=== PATIENT | male | born 1935 | race Hispanic/Latino ===

== ENCOUNTER 2018-08-17 14:16 | Observation (INO) | payer OTHER ==
[~2018-08-17] VITALS: Ht 160 cm; Wt 61.7 kg
[~2018-08-17 14:16] MED LIST: AEC81 PO; ATOR10TA69 PO; DONE10TA36 PO; FURO20TA6 PO; Isosorbide Mono 30MG Tab Sr PO; LISI-617 PO
[2018-08-17 14:52] LABS: BASOPHILS % (AUTO) 0.5 % (0.0-5.0); EOSINOPHILS % (AUTO) 1.4 % (0.0-8.0); LYMPHOCYTES % (AUTO) 14.9 % (21.0-51.0); MEAN CORPUSCULAR HEMOGLOBIN 32.8 pg (27.0-33.0); MEAN CORPUSCULAR HGB CONC 33.8 g/dL (32.0-36.0); MEAN CORPUSCULAR VOLUME 97.2 fL (79-99); MONOCYTES % (AUTO) 5.8 % (3.0-13.0); NEUTROPHILS % (AUTO) 77.4 % (40.0-77.0); PLATELET COUNT (AUTO) 224 K/uL (130-400); RED BLOOD CELL COUNT(AUTO) 4.12 MIL/uL (4.50-6.20); RED CELL DISTRIBUTION WIDTH 13.1 % (11.0-15.5); WHITE BLOOD COUNT (AUTO) 9.1 K/uL (4.8-10.8)
[2018-08-17] MEDS ORDERED: TETANUS/DIPHTHERIA TOXOID [ADULT] 0.5 ML VIAL IM ONE (14:53)
[2018-08-17] MEDS ORDERED: SODIUM CHLORIDE 0.9% 250 ML IV ONE (14:57)
[2018-08-17 15:13] LABS: CREATININE 1.3 mg/dL (0.5-1.5)
[2018-08-17 15:18] LABS: ALBUMIN 3.5 g/dL (3.5-5.0); BILIRUBIN,TOTAL 0.8 mg/dL (0.2-1.0); TOTAL PROTEIN, SERUM 7.3 g/dL (6.0-8.3)
[2018-08-17 16:26] LABS: APPEARANCE,URINE Clear (CLEAR); BILIRUBIN,URINE Negative (NEGATIVE); COLOR,URINE Yellow (YELLOW); GLUCOSE, URINE (UA) Negative (NEGATIVE); KETONES,URINE Trace mg/dL (NEGATIVE); LEUKOCYTE ESTERASE ,URINE Small (NEGATIVE); NITRATE,URINE Negative (NEGATIVE); OCCULT BLOOD,URINE Negative (NEGATIVE); PROTEIN,URINE Negative (NEGATIVE)
[2018-08-17 16:59] LABS: BACTERIA,URINE Few /HPF (None Seen); RBC,URINE 0-1 /HPF (0-1); SQUAMOUS EPITHELIAL CELL,UR 0-2 /HPF (0-2)
[2018-08-17] MEDS ORDERED: HYDROCODONE/ACETAMINOPHEN 5/325 MG TAB PO PRN (17:00)
[2018-08-17] MEDS ORDERED: ONDANSETRON HCL 4 MG/2 ML VIAL IVP PRN (17:00)
[2018-08-17] MEDS ORDERED: ACETAMINOPHEN 325 MG TAB PO PRN (17:00)
[2018-08-17] MEDS ORDERED: DEXTROSE 50%-WATER 50 ML DISP.SYRIN IV PRN (17:00)
[2018-08-17] MEDS ORDERED: MORPHINE SULFATE 2 MG/ML 1ML SYG IVP PRN (17:00)
[2018-08-17] MEDS ORDERED: GLUCAGON 1MG KIT 1 MG ML IM PRN (17:00)
[2018-08-17 19:00] VITALS: BP_SYST 108; BP_SYST 121; BP_DIAS 55; BP_DIAS 70
[2018-08-17] MEDS: INSULIN R PO SS1 SQ SCH (21:00)
[2018-08-17] MEDS: LACTATED RINGERS 1000ML 1,000 ML IV SCH (21:35)
[2018-08-17] MEDS: ATORVASTATIN CALCIUM 10 MG TABLET PO SCH (21:35)
[2018-08-17] MEDS: DONEPEZIL HCL 5 MG TAB PO SCH (21:35)
[2018-08-17 21:59] LABS: TROPONIN I 0.08 ng/mL (0.00-0.06)
[2018-08-18] VITALS: BP 120/68
[2018-08-18] MEDS ORDERED: ISOS30TA6 PO (01:57)
[2018-08-18 04:00] VITALS: BP 160/85
[2018-08-18 05:25] LABS: BASOPHILS % (AUTO) 0.3 % (0.0-5.0); EOSINOPHILS % (AUTO) 2.2 % (0.0-8.0); HEMATOCRIT 35.8 % (42-54); LYMPHOCYTES % (AUTO) 17.4 % (21.0-51.0); MEAN CORPUSCULAR HEMOGLOBIN 31.9 pg (27.0-33.0); MEAN CORPUSCULAR HGB CONC 33.2 g/dL (32.0-36.0); MEAN CORPUSCULAR VOLUME 96.1 fL (79-99); MONOCYTES % (AUTO) 8.3 % (3.0-13.0); NEUTROPHILS % (AUTO) 71.8 % (40.0-77.0); NUCLEATED RED BLOOD CELLS 0.1 % (0.0-0.19); PLATELET COUNT (AUTO) 187 K/uL (130-400); RED BLOOD CELL COUNT(AUTO) 3.73 MIL/uL (4.50-6.20); RED CELL DISTRIBUTION WIDTH 12.6 % (11.0-15.5); WHITE BLOOD COUNT (AUTO) 8.8 K/uL (4.8-10.8)
[2018-08-18 05:51] LABS: CREATININE 1.4 mg/dL (0.5-1.5); POTASSIUM 3.8 mmol/L (3.5-5.1); TROPONIN I 0.07 ng/mL (0.00-0.06)
[2018-08-18] MEDS: LACTATED RINGERS 1000ML 1,000 ML IV SCH ×2 (06:20→19:40)
[2018-08-18] MEDS: INSULIN R PO SS1 SQ SCH ×4 (06:43→21:00)
[2018-08-18 08:00] VITALS: BP 151/92
[2018-08-18] MEDS ORDERED: PNEUMOCOCCAL VACCINE POLYVALENT 0.5 ML/VIAL [PPV] IM ONE (09:00)
[2018-08-18 11:00] VITALS: BP 155/79
[2018-08-18] MEDS: ASPIRIN 81MG TAB.CHEW PO SCH (11:55)
[2018-08-18] MEDS: LISINOPRIL 5 MG TABLET PO SCH (11:56)
[2018-08-18] MEDS: FUROSEMIDE 20 MG TABLET PO SCH (11:57)
[2018-08-18] MEDS: ENOXAPARIN SODIUM 40 MG/0.4 ML SYRINGE SQ SCH (11:57)
[2018-08-18 17:31] VITALS: BP 156/93
[2018-08-18] MEDS: ATORVASTATIN CALCIUM 10 MG TABLET PO SCH (21:25)
[2018-08-18] MEDS: DONEPEZIL HCL 5 MG TAB PO SCH (21:25)
[2018-08-19] VITALS: BP 140/85
[2018-08-19 04:00] VITALS: BP 133/82
[2018-08-19] MEDS: INSULIN R PO SS1 SQ SCH ×3 (05:44→16:30)
[2018-08-19 07:25] VITALS: BP 133/81
[2018-08-19] MEDS: LISINOPRIL 5 MG TABLET PO SCH (08:54)
[2018-08-19] MEDS: ASPIRIN 81MG TAB.CHEW PO SCH (08:54)
[2018-08-19] MEDS: FUROSEMIDE 20 MG TABLET PO SCH (08:54)
[2018-08-19] MEDS: LACTATED RINGERS 1000ML 1,000 ML IV SCH (09:00)
[2018-08-19] MEDS: ENOXAPARIN SODIUM 40 MG/0.4 ML SYRINGE SQ SCH (09:07)
[2018-08-19 11:44] VITALS: BP 148/84
[2018-08-19 16:00] VITALS: BP 118/70
== END 2018-08-19 20:41 | disposition home or self-care (01) ==
LOC: EDH 14:16 → EDHIP 16:27 → 3DH 18:10
PROVIDERS: ADMIT Internal Medicine Critical Care Medicine; ATTEND Internal Medicine Critical Care Medicine
DX: R55 Syncope and collapse (principal); I35.0 Nonrheumatic aortic (valve) stenosis; I10 Essential (primary) hypertension; E78.5 Hyperlipidemia, unspecified; S01.01XA Laceration without foreign body of scalp, initial encounter; I25.10 Atherosclerotic heart disease of native coronary artery without angina pectoris; I45.2 Bifascicular block; J44.9 Chronic obstructive pulmonary disease, unspecified; J84.10 Pulmonary fibrosis, unspecified; G30.9 Alzheimer's disease, unspecified; F02.80 Dementia in other diseases classified elsewhere, unspecified severity, without behavioral disturbance, psychotic disturbance, mood disturbance, and anxiety; Z95.1 Presence of aortocoronary bypass graft; Z95.5 Presence of coronary angioplasty implant and graft; Z99.81 Dependence on supplemental oxygen; W17.89XA Other fall from one level to another, initial encounter; Y93.89 Activity, other specified; Y92.009 Unspecified place in unspecified non-institutional (private) residence as the place of occurrence of the external cause; Y99.8 Other external cause status; Z23 Encounter for immunization
CPT/HCPCS: 36415 ×2; 70450; 71045; 72125; 80048; 80053; 81001; 82550 ×3; 82948 ×8; 83874 ×2; 84484 ×3; 85025 ×2; 90471; 90714; 90732; 93005 ×2; 93306; 96360; 96361 ×2; 96372 ×2; 99284; A4510; G0009; G0378 ×52; J1650 ×2; J7030; J7120 ×2; Q2038

== ENCOUNTER 2018-09-09 17:11 | Observation (INO) | payer OTHER ==
[~2018-09-09] VITALS: Ht 165.1 cm; Wt 80.3 kg
[~2018-09-09 17:11] MED LIST changes: -FURO20TA6 PO; -Isosorbide Mono 30MG Tab Sr PO
[2018-09-09 17:51] LABS: BASOPHILS % (AUTO) 0.3 % (0.0-5.0); EOSINOPHILS % (AUTO) 0.2 % (0.0-8.0); HEMATOCRIT 43.1 % (42-54); MEAN CORPUSCULAR HEMOGLOBIN 31.3 pg (27.0-33.0); MEAN CORPUSCULAR HGB CONC 32.9 g/dL (32.0-36.0); MONOCYTES % (AUTO) 7.4 % (3.0-13.0); NEUTROPHILS % (AUTO) 83.1 % (40.0-77.0); PLATELET COUNT (AUTO) 221 K/uL (130-400); RED BLOOD CELL COUNT(AUTO) 4.53 MIL/uL (4.50-6.20); RED CELL DISTRIBUTION WIDTH 12.5 % (11.0-15.5)
[2018-09-09] MEDS ORDERED: SODIUM CHLORIDE 0.9% 1000ML 1,000 ML IV ONE ×2 (17:57→21:43)
[2018-09-09 17:59] LABS: INR 0.96 (0.85-1.15); PARTIAL THROMBOPLASTIN TIME 26.8 SEC (26.3-35.5); PROTHROMBIN TIME 10.1 SEC (9.6-11.6)
[2018-09-09] MEDS ORDERED: ACETAMINOPHEN 325 MG TAB ONE (18:05)
[2018-09-09] MEDS ORDERED: CEFTRIAXONE SODIUM 1 GM ONE (18:05)
[2018-09-09] MEDS ORDERED: METHYLPREDNISOLONE SOD SUCC 125MG/2ML VIAL ONE (18:11)
[2018-09-09] MEDS ORDERED: IPRATROPIUM/ALBUTEROL SULFATE 3 ML SOLUTION IH ONE (18:13)
[2018-09-09 18:15] LABS: CARBON DIOXIDE 31 mmol/L (21-32); CHLORIDE 103 mmol/L (101-111); CREATININE 1.3 mg/dL (0.5-1.5); GLOMERULAR FILTR. RATE CALC 56 mL/min (>60); GLUCOSE,RANDOM 138 mg/dL (70-105); POTASSIUM 3.9 mmol/L (3.5-5.1); SODIUM SERUM 142 mmol/L (136-145); UREA NITROGEN, BLOOD 22 mg/dL (7-18)
[2018-09-09] MEDS ORDERED: LEVOFLOXACIN 750 MG/D5W 150 ML 150 ML ONE (18:19)
[2018-09-09 18:26] LABS: ALANINE AMINOTRANSFERASE 23 U/L (12-78); ALBUMIN 3.6 g/dL (3.5-5.0); ASPARTATE AMINOTRANSFERASE 18 U/L (10-37); BILIRUBIN,TOTAL 0.8 mg/dL (0.2-1.0); CREATINE KINASE, TOTAL 59 U/L (21-232); MYOGLOBIN 46 ng/mL (10-92); TOTAL PROTEIN, SERUM 8.3 g/dL (6.0-8.3); TROPONIN I < 0.04 ng/mL (0.00-0.06)
[2018-09-09] MEDS: SODIUM CHLORIDE 0.9% 1000ML 1,000 ML IV SCH ×2 (19:15→20:15)
[2018-09-09] MEDS ORDERED: VANCOMYCIN 1GM+NS 250ML 250 ML IV SCH (20:15)
[2018-09-09] MEDS ORDERED: VANCOMYCIN PROTOCOL PER PHARMACY IV SCH (20:15)
[2018-09-09] MEDS ORDERED: DEXTROSE 50%-WATER 50 ML DISP.SYRIN IV PRN (20:30)
[2018-09-09] MEDS ORDERED: ACETAMINOPHEN 325 MG TAB PO PRN (20:30)
[2018-09-09] MEDS ORDERED: GLUCAGON 1MG KIT 1 MG ML IM PRN (20:30)
[2018-09-09] MEDS ORDERED: ONDANSETRON HCL 4 MG/2 ML VIAL IVP PRN (20:30)
[2018-09-09] MEDS: INSULIN R PO SS1 SQ SCH (21:00)
[2018-09-09] MEDS: ZOSYN 3.375GM+NS 50ML 50 ML IV SCH (21:00)
[2018-09-09] MEDS: METHYLPREDNISOLONE SOD SUCC 40MG/ML 1ML IVP SCH (21:00)
[2018-09-09] MEDS: BUDESONIDE 0.5 MG/2 ML INH IH SCH (21:19)
[2018-09-09] MEDS ORDERED: SODIUM CHLORIDE 0.9% 50 ML IV ONE (21:44)
[2018-09-09] MEDS ORDERED: ZOSYN 3.375GM+NS 50ML 50 ML IV ONE (21:44)
[2018-09-09] MEDS: IPRATROPIUM/ALBUTEROL SULFATE 3 ML SOLUTION IH SCH (23:24)
[2018-09-10 00:13] LABS: APPEARANCE,URINE Cloudy (CLEAR); BILIRUBIN,URINE Negative (NEGATIVE); COLOR,URINE Dark Yellow (YELLOW); GLUCOSE, URINE (UA) TRACE mg/dL (NEGATIVE); KETONES,URINE Trace mg/dL (NEGATIVE); LEUKOCYTE ESTERASE ,URINE Trace (NEGATIVE); NITRATE,URINE Negative (NEGATIVE); OCCULT BLOOD,URINE Negative (NEGATIVE); PH,URINE 5.5 (5.0-8.0); PROTEIN,URINE Trace (NEGATIVE)
[2018-09-10 00:20] LABS: BACTERIA,URINE Rare /HPF (None Seen); MUCUS,URINE Few LPF (None Seen); RBC,URINE 0-1 /HPF (0-1); SQUAMOUS EPITHELIAL CELL,UR Few /HPF (0-2)
[2018-09-10] MEDS ORDERED: VANCOMYCIN 1GM+NS 250ML 250 ML IV ONE (00:42)
[2018-09-10 01:00] VITALS: BP 134/76
[2018-09-10] MEDS ORDERED: FURO-152 PO (01:34)
[2018-09-10] MEDS ORDERED: VANCOMYCIN PROTOCOL PER PHARMACY IV SCH (02:15)
[2018-09-10] MEDS ORDERED: PHARMACY COMMUNICATION MISC SCH (02:15)
[2018-09-10 04:00] VITALS: BP 117/65
[2018-09-10] MEDS ORDERED: VANCOMYCIN 1.25 GM in SODIUM CHLORIDE 0.9% 250 ML IV SCH (04:00)
[2018-09-10] MEDS: ZOSYN 3.375GM+NS 50ML 50 ML IV SCH ×3 (05:25→20:17)
[2018-09-10] MEDS: INSULIN R PO SS1 SQ SCH ×4 (05:55→21:54)
[2018-09-10] MEDS: IPRATROPIUM/ALBUTEROL SULFATE 3 ML SOLUTION IH SCH ×4 (07:07→23:44)
[2018-09-10] MEDS: BUDESONIDE 0.5 MG/2 ML INH IH SCH ×2 (07:21→18:38)
[2018-09-10 08:00] VITALS: BP 128/62
[2018-09-10] MEDS: METHYLPREDNISOLONE SOD SUCC 40MG/ML 1ML IVP SCH ×2 (09:50→20:17)
[2018-09-10] MEDS: PANTOPRAZOLE SODIUM 40 MG TABLET.DR PO SCH (09:50)
[2018-09-10 12:00] VITALS: BP_SYST 126; BP_SYST 134; BP_DIAS 58; BP_DIAS 84
[2018-09-10] MEDS ORDERED: SODIUM CHLORIDE 3% FOR INHALATION 4 ML/AMP VIAL.NEB IH ONE (13:41)
[2018-09-10] MEDS: SODIUM CHLORIDE 0.9% 1000ML 1,000 ML IV SCH ×3 (15:15→20:17)
[2018-09-10 16:00] VITALS: BP 110/68
[2018-09-10 20:00] VITALS: BP 125/77
[2018-09-10] MEDS: VANCOMYCIN 1GM+NS 250ML 250 ML IV SCH (20:18)
[2018-09-11] VITALS: BP 125/77
[2018-09-11] MEDS ORDERED: SODIUM CHLORIDE 3% FOR INHALATION 4 ML/AMP VIAL.NEB IH ONE (00:20)
[2018-09-11 04:16] VITALS: BP 124/72
[2018-09-11] MEDS: INSULIN R PO SS1 SQ SCH ×4 (05:54→21:00)
[2018-09-11] MEDS: ZOSYN 3.375GM+NS 50ML 50 ML IV SCH ×3 (05:54→15:30)
[2018-09-11] MEDS: IPRATROPIUM/ALBUTEROL SULFATE 3 ML SOLUTION IH SCH ×4 (07:03→23:30)
[2018-09-11] MEDS: BUDESONIDE 0.5 MG/2 ML INH IH SCH ×2 (07:11→18:35)
[2018-09-11] MEDS: SODIUM CHLORIDE 3% FOR INHALATION 4 ML/AMP VIAL.NEB IH ONE ×2 (07:13→07:19)
[2018-09-11 08:16] VITALS: BP 127/77
[2018-09-11] MEDS: METHYLPREDNISOLONE SOD SUCC 40MG/ML 1ML IVP SCH ×2 (09:11→21:55)
[2018-09-11] MEDS: PANTOPRAZOLE SODIUM 40 MG TABLET.DR PO SCH (09:12)
[2018-09-11] MEDS: FAMOTIDINE 20MG TAB 20 MG TAB PO SCH (09:12)
[2018-09-11] MEDS: ENOXAPARIN SODIUM 40 MG/0.4 ML SYRINGE SQ SCH (09:13)
[2018-09-11 11:10] LABS: HEMATOCRIT 33.9 % (42-54); MEAN CORPUSCULAR HEMOGLOBIN 32.1 pg (27.0-33.0); MEAN CORPUSCULAR HGB CONC 33.2 g/dL (32.0-36.0); MEAN CORPUSCULAR VOLUME 96.6 fL (79-99); PLATELET COUNT (AUTO) 209 K/uL (130-400); RED BLOOD CELL COUNT(AUTO) 3.51 MIL/uL (4.50-6.20); RED CELL DISTRIBUTION WIDTH 12.7 % (11.0-15.5); WHITE BLOOD COUNT (AUTO) 19.8 K/uL (4.8-10.8)
[2018-09-11 11:16] LABS: CREATININE 1.3 mg/dL (0.5-1.5); POTASSIUM 3.9 mmol/L (3.5-5.1)
[2018-09-11] MEDS: SODIUM CHLORIDE 0.9% 1000ML 1,000 ML IV SCH (12:44)
[2018-09-11 13:48] VITALS: BP 127/70
[2018-09-11 16:47] VITALS: BP 130/70
[2018-09-11 21:36] VITALS: BP 122/60
[2018-09-11] MEDS: VANCOMYCIN 1GM+NS 250ML 250 ML IV SCH (21:54)
[2018-09-12] VITALS: BP 127/86
[2018-09-12 04:15] VITALS: BP 111/69
[2018-09-12] MEDS: ZOSYN 3.375GM+NS 50ML 50 ML IV SCH (05:29)
[2018-09-12] MEDS: IPRATROPIUM/ALBUTEROL SULFATE 3 ML SOLUTION IH SCH ×2 (06:43→11:21)
[2018-09-12] MEDS: INSULIN R PO SS1 SQ SCH (06:44)
[2018-09-12] MEDS: BUDESONIDE 0.5 MG/2 ML INH IH SCH (06:52)
[2018-09-12] MEDS: SODIUM CHLORIDE 0.9% 1000ML 1,000 ML IV SCH ×2 (07:15→08:15)
[2018-09-12 08:00] VITALS: BP 146/80
[2018-09-12] MEDS: ENOXAPARIN SODIUM 40 MG/0.4 ML SYRINGE SQ SCH (09:00)
[2018-09-12] MEDS: PANTOPRAZOLE SODIUM 40 MG TABLET.DR PO SCH (10:55)
[2018-09-12] MEDS: METHYLPREDNISOLONE SOD SUCC 40MG/ML 1ML IVP SCH (10:55)
[2018-09-12] MEDS: FAMOTIDINE 20MG TAB 20 MG TAB PO SCH (10:55)
[2018-09-12] MEDS ORDERED: FUROSEMIDE 10 MG/ML 2ML VIAL IV SCH (12:15)
[2018-09-12] MEDS ORDERED: BISACODYL 10 MG SUPP.RECT RC PRN (12:15)
[2018-09-12] MEDS ORDERED: ZOLPIDEM TARTRATE 5 MG TAB PO PRN (12:15)
[2018-09-12] MEDS ORDERED: LACTULOSE 20 GM/30 ML UDCUP PO PRN (12:15)
== END 2018-09-12 11:00 | disposition home or self-care (01) ==
LOC: EDH 17:11 → EDHIP 18:20 → 3BH 09-10 01:08
PROVIDERS: ADMIT Internal Medicine Critical Care Medicine; ATTEND Internal Medicine Critical Care Medicine
DX: J44.1 Chronic obstructive pulmonary disease with (acute) exacerbation (principal); J44.0 Chronic obstructive pulmonary disease with (acute) lower respiratory infection; R50.9 Fever, unspecified; I35.0 Nonrheumatic aortic (valve) stenosis; I10 Essential (primary) hypertension; I25.10 Atherosclerotic heart disease of native coronary artery without angina pectoris; J96.21 Acute and chronic respiratory failure with hypoxia; E78.5 Hyperlipidemia, unspecified; F02.80 Dementia in other diseases classified elsewhere, unspecified severity, without behavioral disturbance, psychotic disturbance, mood disturbance, and anxiety; G30.9 Alzheimer's disease, unspecified; Z23 Encounter for immunization; Z74.01 Bed confinement status; Z95.1 Presence of aortocoronary bypass graft; Z95.5 Presence of coronary angioplasty implant and graft; Z99.81 Dependence on supplemental oxygen; Z79.01 Long term (current) use of anticoagulants
CPT/HCPCS: 36415 ×2; 71045; 80048; 80053; 81001; 82550; 82948 ×10; 83605; 83874; 84484; 85025; 85027; 85610; 85730; 87040 ×2; 87071; 87088; 87205; 87804 ×2; 93005; 94640 ×20; 94664; 96365; 96366 ×3; 96368; 96372 ×2; 96375; 96376 ×3; 97116; 97161; 99284; G0378 ×65; G8978; G8979; G8980; G8981; G8982; G8983; J0696; J1650; J1815 ×2; J1956; J2543 ×8; J2920 ×5; J2930; J3370 ×3; J7030 ×3

== ENCOUNTER 2018-09-26 16:54 | Emergency (ER) | payer OTHER ==
[~2018-09-26 16:54] MED LIST changes: +FURO-152 PO
[2018-09-26 17:52] LABS: BASOPHILS % (AUTO) 0.7 % (0.0-5.0); EOSINOPHILS % (AUTO) 2.5 % (0.0-8.0); HEMATOCRIT 38.8 % (42-54); LYMPHOCYTES % (AUTO) 14.3 % (21.0-51.0); MEAN CORPUSCULAR HEMOGLOBIN 31.7 pg (27.0-33.0); MEAN CORPUSCULAR HGB CONC 32.3 g/dL (32.0-36.0); MEAN CORPUSCULAR VOLUME 98.2 fL (79-99); MONOCYTES % (AUTO) 6.5 % (3.0-13.0); PLATELET COUNT (AUTO) 315 K/uL (130-400); RED BLOOD CELL COUNT(AUTO) 3.95 MIL/uL (4.50-6.20); RED CELL DISTRIBUTION WIDTH 13.5 % (11.0-15.5); WHITE BLOOD COUNT (AUTO) 9.9 K/uL (4.8-10.8)
[2018-09-26 18:08] LABS: APPEARANCE,URINE Clear (CLEAR); BILIRUBIN,URINE Negative (NEGATIVE); COLOR,URINE Yellow (YELLOW); GLUCOSE, URINE (UA) Negative (NEGATIVE); KETONES,URINE Negative (NEGATIVE); LEUKOCYTE ESTERASE ,URINE Negative (NEGATIVE); NITRATE,URINE Negative (NEGATIVE); OCCULT BLOOD,URINE Negative (NEGATIVE); PROTEIN,URINE Negative (NEGATIVE)
[2018-09-26 18:15] LABS: AMPHET/METH SCREEN,URINE NEGATIVE (NEGATIVE); BARBITURATE SCREEN, URINE NEGATIVE (NEGATIVE); BENZODIAZEPINES SCREEN,URINE NEGATIVE (NEGATIVE); CANNABINOID SCREEN,URINE NEGATIVE (NEGATIVE); COCAINE SCREEN,URINE NEGATIVE (NEGATIVE); OPIATE SCREEN,URINE NEGATIVE (NEGATIVE); PHENCYCLIDINE SCREEN,URINE NEGATIVE (NEGATIVE)
[2018-09-26 18:15] LABS: CARBON DIOXIDE 31 mmol/L (21-32); CHLORIDE 106 mmol/L (101-111); CREATININE 1.3 mg/dL (0.5-1.5); GLOMERULAR FILTR. RATE CALC 56 mL/min (>60); GLUCOSE,RANDOM 153 mg/dL (70-105); POTASSIUM 3.8 mmol/L (3.5-5.1); SODIUM SERUM 144 mmol/L (136-145); UREA NITROGEN, BLOOD 24 mg/dL (7-18)
[2018-09-26 18:20] LABS: ALANINE AMINOTRANSFERASE 26 U/L (12-78); ALCOHOL, BLOOD < 3 mg/dL (0-10); ASPARTATE AMINOTRANSFERASE 24 U/L (10-37); BILIRUBIN,TOTAL 0.7 mg/dL (0.2-1.0); TOTAL PROTEIN, SERUM 6.7 g/dL (6.0-8.3)
== END 2018-09-26 19:08 | disposition home or self-care (01) ==
LOC: EDH 16:54
DX: R55 Syncope and collapse (principal); I11.0 Hypertensive heart disease with heart failure; I50.9 Heart failure, unspecified; J44.9 Chronic obstructive pulmonary disease, unspecified; Z98.890 Other specified postprocedural states
CPT/HCPCS: 36415; 70450; 80053; 80305; 81003; 84484; 85025; 93005; 99284; G0480

== ENCOUNTER 2019-05-29 13:15 | Emergency (ER) | payer OTHER ==
[2019-05-29 13:46] LABS: BASOPHILS % (AUTO) 0.7 % (0.0-5.0); EOSINOPHILS % (AUTO) 2.1 % (0.0-8.0); HEMATOCRIT 41.5 % (42-54); MEAN CORPUSCULAR HEMOGLOBIN 32.7 pg (27.0-33.0); MEAN CORPUSCULAR VOLUME 96.2 fL (79-99); MONOCYTES % (AUTO) 6.7 % (3.0-13.0); NEUTROPHILS % (AUTO) 63.5 % (40.0-77.0); NUCLEATED RED BLOOD CELLS 0.1 % (0.0-0.19); PLATELET COUNT (AUTO) 222 K/uL (130-400); RED BLOOD CELL COUNT(AUTO) 4.32 MIL/uL (4.50-6.20); WHITE BLOOD COUNT (AUTO) 7.3 K/uL (4.8-10.8)
[2019-05-29 13:57] LABS: CREATININE 1.6 mg/dL (0.5-1.5); POTASSIUM 3.3 mmol/L (3.5-5.1)
[2019-05-29 13:58] LABS: INR 1.02 (0.85-1.15); PARTIAL THROMBOPLASTIN TIME 24.7 SEC (26.3-35.5); PROTHROMBIN TIME 10.7 SEC (9.6-11.6)
[2019-05-29 14:02] LABS: ALBUMIN 3.4 g/dL (3.5-5.0); BILIRUBIN,TOTAL 0.6 mg/dL (0.2-1.0); TOTAL PROTEIN, SERUM 6.8 g/dL (6.0-8.3)
== END 2019-05-29 14:56 | disposition home or self-care (01) ==
LOC: EDH 13:15
DX: J69.0 Pneumonitis due to inhalation of food and vomit (principal); I11.0 Hypertensive heart disease with heart failure; I50.9 Heart failure, unspecified; J44.9 Chronic obstructive pulmonary disease, unspecified; G30.9 Alzheimer's disease, unspecified; F02.80 Dementia in other diseases classified elsewhere, unspecified severity, without behavioral disturbance, psychotic disturbance, mood disturbance, and anxiety
CPT/HCPCS: 36415; 71045; 80053; 82550; 83880; 84484; 85025; 85610; 85730; 93005

== ENCOUNTER → 2019-11-20 | Outpatient (CLI) | payer OTHER ==
[~2019-11-20] MED LIST changes: +IOHEXOL-350 50ML VIAL IV ONE
== END | disposition home or self-care (01) ==
LOC: RAH 10:09
PROVIDERS: ATTEND Internal Medicine
DX: I08.3 Combined rheumatic disorders of mitral, aortic and tricuspid valves (principal); J98.11 Atelectasis; I71.2 Thoracic aortic aneurysm, without rupture; I25.3 Aneurysm of heart; M47.814 Spondylosis without myelopathy or radiculopathy, thoracic region; R01.1 Cardiac murmur, unspecified; J96.11 Chronic respiratory failure with hypoxia
CPT/HCPCS: 71270; 93306; 93356; Q9967

== ENCOUNTER 2021-10-06 00:47 | Emergency (ER) | payer OTHER ==
[~2021-10-06] VITALS: Ht 162.6 cm; Wt 59.0 kg
[~2021-10-06 00:47] MED LIST changes: +DONE-53 PO; -DONE10TA36 PO; -IOHEXOL-350 50ML VIAL IV ONE; -LISI-617 PO; +LISI5TAB21 PO
[2021-10-06] MEDS ORDERED: 0.9%NACL 1000ML 1,000 ML IV ONE (01:34)
[2021-10-06 01:39] LABS: BASOPHILS % (AUTO) 0.1 % (0.0-5.0); EOSINOPHILS % (AUTO) 0.3 % (0.0-8.0); HEMATOCRIT 37.5 % (42-54); LYMPHOCYTES % (AUTO) 4.2 % (21.0-51.0); MEAN CORPUSCULAR HEMOGLOBIN 33.3 pg (27.0-33.0); MEAN CORPUSCULAR HGB CONC 32.5 g/dL (32.0-36.0); MEAN CORPUSCULAR VOLUME 102.5 fL (79-99); NEUTROPHILS % (AUTO) 88.9 % (40.0-77.0); PLATELET COUNT (AUTO) 209 K/uL (130-400); RED BLOOD CELL COUNT(AUTO) 3.66 MIL/uL (4.50-6.20); RED CELL DISTRIBUTION WIDTH 12.3 % (11.0-15.5); WHITE BLOOD COUNT (AUTO) 13.5 K/uL (4.8-10.8)
[2021-10-06 01:53] LABS: CREATININE 1.7 mg/dL (0.5-1.5); POTASSIUM 3.6 mmol/L (3.5-5.1)
[2021-10-06 01:58] LABS: ALBUMIN 4.2 g/dL (3.5-5.0); BILIRUBIN,TOTAL 0.4 mg/dL (0.2-1.0)
[2021-10-06 03:11] VITALS: BP 134/78
== END 2021-10-06 03:26 | disposition home or self-care (01) ==
LOC: EDH 00:47
DX: E86.9 Volume depletion, unspecified (principal); I95.1 Orthostatic hypotension; I11.0 Hypertensive heart disease with heart failure; I50.9 Heart failure, unspecified; E78.00 Pure hypercholesterolemia, unspecified; F03.90 Unspecified dementia, unspecified severity, without behavioral disturbance, psychotic disturbance, mood disturbance, and anxiety; Z79.82 Long term (current) use of aspirin; Z79.899 Other long term (current) drug therapy
CPT/HCPCS: 36415; 70450; 71045; 80053; 84484; 85025; 86850; 86900; 86901; 93005; 96360; 96361; 99285; J7030

== ENCOUNTER → 2023-10-29 | Outpatient (CLI) | payer OTHER ==
[~2023-10-29] MED LIST changes: +DOCU-116 PO; -DONE-53 PO; +DONE23TA14 PO; -FURO-152 PO; +PANT20TA18 PO; +WHEA1POW2 PO
[2023-10-29 16:51] LABS: CREATININE 1.6 mg/dL (0.5-1.5); MAGNESIUM 2.5 mg/dL (1.80-2.40); POTASSIUM 4.4 mmol/L (3.5-5.1)
== END | disposition home or self-care (01) ==
LOC: LAB 13:47
PROVIDERS: ATTEND Internal Medicine Cardiovascular Disease
DX: I35.0 Nonrheumatic aortic (valve) stenosis (principal)
CPT/HCPCS: 36415; 80048; 83735; 83880